=== PATIENT | male | born 1995 | race Caucasian/White ===

== ENCOUNTER 2016-10-29 19:46 | Emergency (ER) | payer OTHER ==
[~2016-10-29] VITALS: Ht 180.3 cm; Wt 131.4 kg
[~2016-10-29 19:46] MED LIST: ALBU8.5H2 IH; OMEP-113 PO
[2016-10-29 20:10] VITALS: BP 150/101; PULSE 71; RESP 16; O2SAT 98
--- NOTE | 2016-10-29 20:15 | ED.REPORT ---
HPI-Dental/Mouth Prob Date of Service Oct 29, 2016 ED Provider: Evgeny Saavedra MD Pt is a 21 year old male presenting to the ED complaining of right sided upper molar pain onset 3 days ago. Associated symptoms include mild right sided facial pain and swelling. He saw his dentist yesterday and is scheduled for a root canal in 2 days. Denies any tongue swelling, neck swelling, or throat swelling. He denies any difficulty breathing or swallowing. He is not acutely compromised. He is not diabetic. He is not having any fevers. Nursing Notes Stated Complaint: FACIAL SWELLING AFTER SEEING DENTIST Chief Complaint: Dental Nursing Notes Reviewed: Yes Allergies: Coded Allergies: Sulfa (Sulfonamide Antibiotics) (Verified Allergy, Intermediate, hives, 10/29/16) Scheduled Omeprazole Magnesium (Omeprazole) 20 Mg Capsule.dr 20 MG PO DAILY Scheduled PRN Albuterol HFA (Proair HFA) 8.5 Gm Hfa.aer.ad 2 PUFFS IH Q4-6H PRN PRN For Shortness of Breath General Time Seen by MD: 20:15 Chief Complaint Tooth pain Hx Obtained From: Patient Arrived By: Walk-in Onset Occurred: 3 days ago Symptom Duration: Since onset Quality: Painful Severity: Current: Moderate Severity: Maximum: Moderate Recent Healthcare: No recent doctor visit, No recent hospitalization Similar Sx Previous: No Past Medical History Past Medical History denies Past Surgical History denies Smoking History Never Smoker Ambulatory Status Independent Review of Systems Ears / Nose / Throat: Reports: Mouth pain, Denies: Throat swelling, Tongue swelling Complete sys rev & neg: except as marked. Skin: Reports Swelling Physical Exam Initial Vital Signs Vital Signs (First) Date Time Temp Pulse Resp B/P Pulse Ox O2 Delivery O2 Flow Rate FiO2 10/29/16 20:10 37.1 71 16 150/101 98 Room Air Initial VS: Reviewed General/Constitutional: Well-developed, Well-nourished Respiratory: Breath sounds normal, Clear to auscultation, No respiratory distress Cardiovascular: Regular rate & rhythm, Heart sounds normal, Intact distal pulses Abdomen / GI: Soft, Non-tender, No guarding, No rebound, No distention Extremities: Vascular intact, Neuro intact, No swelling, No tenderness Skin: Warm, Dry, No cyanosis Neurologic: Alert, Oriented, Nonfocal Psychiatric: Mood/affect normal, Behavior normal, Normal thought content ENT: Atraumatic, Airway patent, Mucous membranes moist Mild swelling about right mandible area. Uvula midline. Tap tenderness about tooth number 2. No surrounding purulent drainage or fluctuance. No evidence of Jairon angina. Tolerating secretions well. Neck: Atraumatic, Supple, No meningismus, Full range of motion, No adenopathy Re-Eval/Medical Decision Med Decision/Clinical Course Pt is a 21 year old male presenting to the ED complaining of right sided upper molar pain onset 3 days ago. Associated symptoms include mild right sided facial pain and swelling. He saw his dentist yesterday and is scheduled for a root canal in 2 days. Denies any tongue swelling, neck swelling, or throat swelling. He denies any difficulty breathing or swallowing. He is not acutely compromised. He is not diabetic. He is not having any fevers. Here in the emergency department the patient is afebrile stable vital signs on examination as above. Examination reveals Tenderness about the upper to without any visible abscess. His airway is widely patent. There is actually no evidence whatsoever of Jairon angina or any airway compromise. He has very subtle swelling about his right jaw without any evidence of fluctuance, induration or cellulitis. He has been treated with Toradol and an ice pack. He has been prescribed a limited supply of antibiotics and pain medications. He has good follow-up this week with a dentist for further management and root canal. I feel that he will do okay until this time. He is advised to return immediately for fevers, increased swelling, difficult breathing, difficulty swallowing or any other concerning signs or symptoms. Prior to discharge follow-up and return precautions were reviewed in detail with the patient who verbalized understanding and agreement with the plan. The patient was discharged in stable condition. Re-Evaluation/Progress : Time of Eval: 21:31 Patient Status: Condition improved Re-Evaluation/Progress Note: Discussed plan for discharge. Pt understands and agrees with plan. Counseled Regarding: Diagnosis, Lab results, Need for follow-up, When/why to return to ED Discharge & Departure Primary Impression: Toothache Additional Impressions: Facial swelling Pain, dental Disposition: Home Discharge Condition All VS Reviewed: Yes Condition: Improved Patient Instructions: Dental Abscess (ED) Additional Instructions: This swelling is not life threatening at this time. I suspect you have a dental abscess. If your whole face, mouth, neck and tongue swell up return to the ER right away. Ice the area and follow up with your dentist for your root canal. Take Ibuprofen 600 mg every 6-8 hours as directed for pain. Stop taking the Ibuprofen if you develop any nausea. Combine the Ibuprofen with Tylenol. Referrals: Pending sale to [facility] Scribe Attestation Portions of this note were transcribed by Gisel Franco. I, Dr. Saavedra personally performed the history, physical exam and medical decision-making; I reviewed and confirmed the accuracy of the information in the transcribed note. Signed by: Diana Soto, 10/29/2016. copies to: Pending sale to [facility] Evgeny Saavedra MD Oct 29, 2016 20:15 GISEL FRANCO Oct 29, 2016 20:19
[2016-10-29] MEDS ORDERED: _Penicillin VK 500 mg Tablet PO SCH (21:15)
[2016-10-29 21:52] VITALS: BP 128/78; PULSE 78; RESP 18; O2SAT 98
== END 2016-10-29 21:55 | disposition home or self-care (01) ==
LOC: SED 19:46
DX: K08.9 Disorder of teeth and supporting structures, unspecified (principal); R22.0 Localized swelling, mass and lump, head; Z88.2 Allergy status to sulfonamides
CPT/HCPCS: 96372; 99283; J1885

== ENCOUNTER → 2016-11-14 | Day surgery (SDC) | payer OTHER ==
--- NOTE | 2016-11-13 18:50 | PCM.HPANE ---
Patient Data Date of Service: Nov 14, 2016 Surgeon Admitting Provider: Attending Provider:Jose Ferraro DPM Primary Care Physician:Steve Other Provider:Arelis Gupta Anesthesia Reason for Visit Left Ankle Fracture Ht/WT & BMI Height (Feet): 5 Height (Inches): 11 Weight (Kilograms): 129.727 Body Mass Index 40.00 Allergies Coded Allergies: Sulfa (Sulfonamide Antibiotics) (Verified Allergy, Severe, hives, 11/12/16) Past Anesthesia History Anesthesia History: Denies:: Abnormal Airway, Anesthesia Reactions, Difficult Intubation, Fam Anesthesia Reaction, Fam Malignant Hypertherm, Malignant Hyperthermia Diabetes History Hx Diabetes?: No MRSA MRSA: No Medications Hypertension Medication: No Home Meds Incl Beta Angelina: No Discontinued Reported Medications Albuterol HFA (Proair HFA)8.5 Gm Hfa.aer.ad2 Puffs IH Q4-6H PRN For Shortness of Breath #1 INHALER 05/26/14 Omeprazole Magnesium (Omeprazole)20 Mg Capsule.dr20 Mg PO DAILY 30 Days Ref 0 05/26/14 History History of ENT Problems?: Yes HEENT History: Denies:: Abnormal Airway Difficult Intubation Dysphagia Hearing Problem Denture Type: None Teeth Condition: Within Normal Limits Other HEENT Pertinent History: HX OF CHRONIC STREP THROATS S/P TONSILLECTOMY Hx of Heart Problems?: Yes Cardiovascular History: Denies:: AICD Atrial Fibrillation Chest Pain Congestive Heart Failure Heart Murmur Hypertension Pacemaker Valvular Heart Disease Other Cardiac History: HX OF THROMBOCYTOPENIA 2015 Hx of Respiratory Problem?: No Respiratory History: Denies:: Asthma COPD Cough Hemoptysis Pneumonia Tuberculosis Use of C-PAP Machine Hx Neurologic Problems?: No Neurological History: Denies:: CVA Dementia Hx of GI Problems?: Yes Gastrointestinal History: Positive for:: Gastroesphageal Reflux Hx of Problems?: No Male Hx: Denies:: Prostate Problems Scrotal Mass Testicular Surgery Skin History: Denies:: History Skin Disorders? Pressure Ulcers Hx Musculoskeletal Problems?: Yes Musculoskeletal History: Positive for:: Musculoskeletal Trauma (FX LT ANKLE= CURRENT PROBLEM) Denies:: Joint Replacement Hx of Psycho/Social Problems?: No Psycho Social History: Denies:: Anxiety Hx Depression Hx Surgeries?: Yes (TONSILLECTOMY) Hx Any Other Health Problems?: Yes Other History: Denies:: Cancer Endocrine Disease Hospitalization Thyroid Disease History Blood Transfusions: Denies:: Blood Transfusions Hx Diabetes: No Hx Alcohol Use: NoHx Substance Use: No Smoking Status: Never Smoker Have You Smoked inLast 12 mo: No Stop/Bang S-Snoring: Do You Snore Loudly: No T-Tired: feel tired, fatigued: No O-Obsered: Observed not breath: No P-Blood Pressure: treated: No B- Body Mass Index > 35 kg/m2: Yes A- Age over 50: No N- Neck Large Circumference: Yes G- Gender Male: Yes KAITY Total Score: 3 KAITY Risk Assessment: Low Risk, <3 Yes Risk Assessment Category Category 1A: Patient has history of documented sleep apnea, and HAS NOT received any narcotic, sedative or anesthesia administration during this stay. Category 1B: Patient has history of documented sleep apnea, and HAS received any narcotic , sedative or anesthesia administration during this stay Category 2: Patient has SUSPECTED Obstructive Sleep Apnea, and HAS received any narcotic , sedative or anesthesia administration during this stay. Category 3: Patient has SUSPECTED Obstructive Sleep Apnea and HAS NOT received narcotic, sedative or anesthesia administration during this stay. Category 4: Outpatient in Procedural Areas with known sleep apnea or who screen positive for High Risk via the STOP/BANG questionnaire. Exam Exam General Appearance: Alert, Oriented X3 HEENT/AIRWAY: MP 1 Lungs: Clear to Auscultation Heart: Exam Unremarkable Plan Impression Patient chart reviewed, patient interviewed and anesthestic plan with risks, benefits, and alternatives discussed, and informed consent obtained. NPO per Anesth. Guidelines: Yes ASA Physical Status: ASA2 Mod Systemic Disease Anesthetic Plan: GA Bene/Risks/Altern/Consents: Yes HP Complete Prior to Induction: Yes Rex Silveira MD Nov 13, 2016 18:50 Pramod Prince MD Nov 14, 2016 10:51
[2016-11-14] VITALS (12 sets, daily range): BP systolic 133–151; BP diastolic 60–95; PULSE 85–98; RESP 11–18; O2SAT 93–100
[~2016-11-14] VITALS: Ht 180.3 cm; Wt 115.4 kg
[~2016-11-14] MED LIST changes: -ALBU8.5H2 IH; +Bupivacaine-MPF 0.5% 30 mL Inj INFILTRATE ONE; +CeFAZolin 2 Gm/50 mL D5W Duplex Bag IV ONE; +CeFAZolin Inj 2 GM in IV Premix 1 EACH IV SCH; +Dexamethasone 4 mg/mL Inj IVPUSH PRN; +Dexamethasone 4 mg/mL Inj ONE; +EPHEDrine Sulfate 50 mg/mL Inj IVPUSH PRN; +HYDROcodone-APAP 5-325 mg Tablet PO PRN; +HYDROmorphone 1 mg/mL Inj IVPUSH PRN; +Lactated Ringer's 1,000 ML IV SCH; +Lactated Ringer's 500 ML IV PRN; +Lidocaine 2%-Epi 1:100,000 20 mL Inj INFILTRATE ONE; +MetoCLOpramide 5 mg/mL 2 mL Inj IVPUSH PRN; -OMEP-113 PO; +Ondansetron 2 mg/mL 2 mL Inj IVPUSH PRN; +Ondansetron 2 mg/mL 2 mL Inj ONE; +Phenylephrine 10,000 mCg/mL Inj IVPUSH PRN; +Propofol 10,000 mCg/mL 20 mL Inj ONE; +Ropivacaine-PF 0.5% 30 mL Inj ONE; +fentaNYL-PF 50 mCg/mL 2 mL Inj ONE
[2016-11-14] MEDS: Lactated Ringer's 1,000 ML IV SCH ×2 (08:20→09:49)
--- NOTE | 2016-11-14 11:57 | PCM.PODPO ---
Podiatry Operative Report Date of Service: Nov 14, 2016 Date of Service Nov 14, 2016 Pre Operative Diagnosis Ankle fracture left lower extremity Post Operative Diagnosis Same as preoperative diagnoses Procedure Open reduction internal fixation left ankle Surgeon Surgeon: Jose Ferraro DPM Assistants: None Indication for Procedure Ankle fracture left lower extremity with syndesmotic disruption and ankle instability Findings Disruption of the distal left syndesmosis Details of Procedure Patient was identified in the preoperative holding area. All preoperative comorbidities and allergies were identified and thoroughly discussed. The patient was transported into the operating room and placed on the operating room table in the normal supine position. The patient was then prepped and draped in the normal aseptic technique. Prior to induction of general anesthesia the patient was given a popliteal block of the left lower extremity by the anesthesia service. A preoperative timeout was performed. Attention was first paid the lateral aspect of left lower extremity and approximately 10 cm incision was made utilizing a #15 blade. Once that initially her skin all subcutaneous neurovascular structures were identified and retracted out of the surgical field. Sharp dissection was carried down directly through subcutaneous tissue to the lateral aspect of the fibula throughout the course of the incision. A Wilkins periosteal elevator was then utilized to carefully elevate subcutaneous tissue and periosteum from the lateral aspect from the fibula. The fracture site was identified and lightly curetted of all hematogenous tissue. The wound was ankle was a flush large amounts of normal saline. Reduction was performed manually and maintained utilizing a lobster- claw style clamp. A 3.5 mm fully threaded cortical screw was then inserted in typical lag technique utilizing intraoperative C-arm x-ray to verify proper screw placement. The clamp was then removed the ankle was placed through range of motion and the fibular fracture was found to be stabilized. An Arthrex distal fibular 6 hole locking plate was then placed on the lateral aspect of the fibula and secured into place utilizing a mixture of 2.7 and 3.5 locking and nonlocking screws utilizing intraoperative C-arm x-ray for verification of proper screw placement. This wound was again closely flushed with normal saline. the left ankle joint was then stressed under fluoroscopic guidance and widening of the ankle mortise was noted at the syndesmosis. An Arthrex tight rope was then inserted from the fibula through the tibia utilizing intraoperative C-arm guidance to ensure proper placement. Following insertion of the tight rope the ankle was again stressed under fluoroscopy and no widening or instability of the ankle mortise was noted. This wound was again copiously flushed with large amounts of normal saline deep closure was performed utilizing number 3. 0 Vicryl subcutaneous closure was performed utilizing number 3. 0 Vicryl and skin closure was performed utilizing number 3. 0 Prolene. A postoperative block consisting of 10 mL half percent Marcaine plain was given directly to the fracture site. This wound was then dressed with Adaptic sterile 4 x 4 gauze Kerlix and the patient was placed into a mildly compressive Abdul style compression dressing with a posterior splint. No complications occurred during this procedure. The patient was awoken by anesthesia and transported out of the operating room. Grafts, Implants: Implants-See Implant Record Complications There were no periprocedural complications identified. Condition Stable Anesthetic Administered: GA Catheters: None Output, Estimated Blood Loss: 30 Blood Admin during surgery: No Surgical Cast or Splint: Well-padded Short Leg Splint Surgical Specimen Removed: No Specimen sent to Pathology: No Post Operative Plan Ice and elevate left ankle Nonweightbearing left lower extremity Keep dressing clean dry and intact Follow-up in office in 1 week Discharged to home when stable Advance diet as tolerated Pain medication as needed for severe pain only Jose Ferraro DPM Nov 14, 2016 11:57
[2016-11-14] MEDS: fentaNYL-PF 50 mCg/mL 2 mL Inj IVPUSH PRN ×2 (12:17→12:30)
--- NOTE | 2016-11-14 15:08 | PCM.HPANE ---
Patient Data Date of Service: Nov 14, 2016 Surgeon Admitting Provider: Attending Provider:Jose Ferraro DPM Primary Care Physician:Steve Other Provider:Arelis Gupta Anesthesia Reason for Visit Left Ankle Fracture Ht/WT & BMI Height (Feet): 5 Height (Inches): 11.00 Weight (Kilograms): 115.4 Body Mass Index 35.00 Allergies Coded Allergies: Sulfa (Sulfonamide Antibiotics) (Verified Allergy, Severe, hives, 11/12/16) Past Anesthesia History Anesthesia History: Denies:: Abnormal Airway, Anesthesia Reactions, Difficult Intubation, Fam Anesthesia Reaction, Fam Malignant Hypertherm, Malignant Hyperthermia Diabetes History Hx Diabetes?: No MRSA MRSA: No Medications Hypertension Medication: No Home Meds Incl Beta Angelina: No Discontinued Reported Medications Albuterol HFA (Proair HFA)8.5 Gm Hfa.aer.ad2 Puffs IH Q4-6H PRN For Shortness of Breath #1 INHALER 05/26/14 Omeprazole Magnesium (Omeprazole)20 Mg Capsule.dr20 Mg PO DAILY 30 Days Ref 0 05/26/14 History History of ENT Problems?: Yes HEENT History: Denies:: Abnormal Airway Difficult Intubation Dysphagia Hearing Problem Denture Type: None Teeth Condition: Within Normal Limits Other HEENT Pertinent History: HX OF CHRONIC STREP THROATS S/P TONSILLECTOMY Hx of Heart Problems?: Yes Cardiovascular History: Denies:: AICD Atrial Fibrillation Chest Pain Congestive Heart Failure Heart Murmur Hypertension Pacemaker Valvular Heart Disease Other Cardiac History: HX OF THROMBOCYTOPENIA 2015 Hx of Respiratory Problem?: No Respiratory History: Denies:: Asthma COPD Cough Hemoptysis Pneumonia Tuberculosis Use of C-PAP Machine Hx Neurologic Problems?: No Neurological History: Denies:: CVA Dementia Hx of GI Problems?: Yes Hx of Problems?: No Male Hx: Denies:: Prostate Problems Scrotal Mass Testicular Surgery Skin History: Denies:: History Skin Disorders? Pressure Ulcers Hx Musculoskeletal Problems?: Yes Musculoskeletal History: Positive for:: Musculoskeletal Trauma (FX LT ANKLE= CURRENT PROBLEM) Denies:: Joint Replacement Hx of Psycho/Social Problems?: No Psycho Social History: Denies:: Anxiety Hx Depression Hx Surgeries?: Yes (TONSILLECTOMY) Hx Any Other Health Problems?: Yes Other History: Denies:: Cancer Endocrine Disease Hospitalization Thyroid Disease History Blood Transfusions: Denies:: Blood Transfusions Hx Diabetes: No Hx Alcohol Use: NoHx Substance Use: No Smoking Status: Never Smoker Have You Smoked inLast 12 mo: No Stop/Bang Treated for Sleep Apnea?: No Do You Have a CPAP Machine?: No S-Snoring: Do You Snore Loudly: No T-Tired: feel tired, fatigued: No O-Obsered: Observed not breath: No P-Blood Pressure: treated: No B- Body Mass Index > 35 kg/m2: Yes A- Age over 50: No N- Neck Large Circumference: Yes G- Gender Male: Yes KAITY Total Score: 3 KAITY Risk Assessment: Low Risk, <3 Yes Risk Assessment Category Category 1A: Patient has history of documented sleep apnea, and HAS NOT received any narcotic, sedative or anesthesia administration during this stay. Category 1B: Patient has history of documented sleep apnea, and HAS received any narcotic , sedative or anesthesia administration during this stay Category 2: Patient has SUSPECTED Obstructive Sleep Apnea, and HAS received any narcotic , sedative or anesthesia administration during this stay. Category 3: Patient has SUSPECTED Obstructive Sleep Apnea and HAS NOT received narcotic, sedative or anesthesia administration during this stay. Category 4: Outpatient in Procedural Areas with known sleep apnea or who screen positive for High Risk via the STOP/BANG questionnaire. Low Risk, <3 Yes Exam Exam Vital Signs Vital Signs Date Time Temp Pulse Resp B/P Pulse Ox O2 Delivery O2 Flow Rate FiO2 11/14/16 13:32 36.5 95 16 147/82 100 Room Air 11/14/16 12:47 36.4 98 16 145/95 96 Room Air 11/14/16 12:30 85 12 145/86 98 Room Air 11/14/16 12:20 94 13 146/87 94 Room Air 11/14/16 12:15 92 11 147/92 94 Room Air 11/14/16 12:10 93 12 142/83 93 Room Air 11/14/16 12:05 93 11 138/72 93 Room Air 11/14/16 12:00 95 11 136/74 Simple Mask 8 11/14/16 11:55 36.2 88 12 138/68 100 Simple Mask 8 11/14/16 11:50 88 12 133/60 100 Simple Mask 8 11/14/16 11:45 36.2 87 12 142/68 100 Simple Mask 8 11/14/16 08:45 36.2 92 18 151/81 97 Room Air General Appearance: Alert, Oriented X3 HEENT/AIRWAY: MP 1 Lungs: Clear to Auscultation Heart: Exam Unremarkable Meds/Labs/Diagnostics Admission Meds Current Medications Cefazolin Sodium/ Dextrose 2 gm/ Premix 50 ml @ 100 mls/hr ONCE IV Last administered on 11/14/16 10:05; Start 11/14/16 at 08:40; Stop 11/14/16 at 12:00 ; Status DC Lactated Ringer's (Lr) 1,000 ml @ 120 mls/hr Q8H20M IV Last administered on 09:49; Start 11/14/16 at 05:00; Stop 11/14/16 at 13:35; Status DC Lidocaine/ Epinephrine (Xylocaine 2%-Epinephrine 1:100,000 Inj) 10 ml STK-MED ONCE INFILTRATE Last administered on 11/14/16 10:31; Start 11/14/16 at 10:31; Stop 11/14/16 at 10:42; Status DC Bupivacaine HCl (Sensorcaine-MPF 0.5% Inj) 30 ml STK-MED ONCE INFILTRATE Last administered on 11/14/16 10:32; Start 11/14/16 at 10:32; Stop 11/14/16 at 10:43 ; Status DC Plan Impression Patient chart reviewed, patient interviewed and anesthestic plan with risks, benefits, and alternatives discussed, and informed consent obtained. NPO per Anesth. Guidelines: Yes ASA Physical Status: ASA2 Mod Systemic Disease Anesthetic Plan: GA Bene/Risks/Altern/Consents: Yes HP Complete Prior to Induction: Yes Pramod Prince MD Nov 14, 2016 15:08
--- NOTE | 2016-11-14 15:09 | PCM.ANEP1 ---
Post Anesthesia PACU Phase 1 Assessment Vital Signs Vital Signs Date Time Temp Pulse Resp B/P Pulse Ox O2 Delivery O2 Flow Rate FiO2 11/14/16 13:32 36.5 95 16 147/82 100 Room Air 11/14/16 12:47 36.4 98 16 145/95 96 Room Air 11/14/16 12:30 85 12 145/86 98 Room Air 11/14/16 12:20 94 13 146/87 94 Room Air 11/14/16 12:15 92 11 147/92 94 Room Air 11/14/16 12:10 93 12 142/83 93 Room Air 11/14/16 12:05 93 11 138/72 93 Room Air 11/14/16 12:00 95 11 136/74 Simple Mask 8 11/14/16 11:55 36.2 88 12 138/68 100 Simple Mask 8 11/14/16 11:50 88 12 133/60 100 Simple Mask 8 11/14/16 11:45 36.2 87 12 142/68 100 Simple Mask 8 11/14/16 08:45 36.2 92 18 151/81 97 Room Air Anesthetic Administered: GA Level of Alertness: Awake, talking WILKES's with Equal Strength: No Pain: Yes Pain Scale Score: 4 Nausea or Vomiting: No CV Function & Hydration Stable: Yes Airway Device: Oralpharangeal Airway Oxygen Delivery: Room Air Lungs: Clear to Auscultation PACU Phase 2 Assessment Complications: No Follow up Care: N/A Patient Instructions Provided: N/A Pramod Prince MD Nov 14, 2016 15:09
== END | disposition home or self-care (01) ==
LOC: SAS 08:17
PROVIDERS: ATTEND Podiatrist Foot & Ankle Surgery
DX: S82.62XA Displaced fracture of lateral malleolus of left fibula, initial encounter for closed fracture (principal); S93.432A Sprain of tibiofibular ligament of left ankle, initial encounter; M25.372 Other instability, left ankle; K21.9 Gastro-esophageal reflux disease without esophagitis; X58.XXXA Exposure to other specified factors, initial encounter; Y93.72 Activity, wrestling; Y92.9 Unspecified place or not applicable; Y99.8 Other external cause status
CPT/HCPCS: 27792; 76000; C1713; J0690; J1100; J1885; J2250; J2405; J2704; J2795; J3010; J7120